=== PATIENT | female | born 1960 | race Caucasian/White ===

== ENCOUNTER 2018-04-08 13:06 | Observation (INO) | payer OTHER ==
[~2018-04-08] VITALS: Ht 167.6 cm; Wt 78.2 kg
[2018-04-08 13:21] LABS: BASOPHIL (%) 0.9 % (0-1); BASOPHIL COUNT 0.1 K/uL (0-0.1); EOSINOPHIL COUNT 0.3 K/uL (0-0.3); HEMATOCRIT 38.7 % (36.0-46.0); HEMOGLOBIN 13.2 G/DL (11.9-15.5); IMMATURE GRANULOCYTE (%) 0.3 % (0.0-0.7); LYMPHOCYTE (%) 48.4 % (15-42); LYMPHOCYTE COUNT 2.8 K/uL (1.0-2.8); MCH 31.4 PG (29.0-34.0); MCHC 34.1 G/DL (30.0-36.0); MCV 92.1 FL (83-99); MONOCYTE (%) 7.9 % (3-12); MONOCYTE COUNT 0.5 K/uL (0-0.8); NEUTROPHIL (%) 37.5 % (45-76); NEUTROPHIL COUNT 2.2 K/uL (1.8-6.4); PLATELET COUNT 218 K/uL (156-360); RBC DIS.WIDTH-CV 12.7 % (11.8-14.6); RBC DIS.WIDTH-SD 42.8 % (39-53); WHITE BLOOD COUNT 5.8 K/uL (4.1-10.2)
[2018-04-08 13:30] LABS: AMYLASE 62 IU/L (1-118); CHLORIDE 107 mEq/L (99-109); INTER. NORMALIZED RATIO 0.9; POTASSIUM 4.3 mEq/L (3.7-5.4); SODIUM 139 mEq/L (136-147)
[2018-04-08 13:32] LABS: GLUCOSE 91 mg/dL (70-99)
[2018-04-08 13:33] LABS: PTT 32.2 SEC (25-37)
[2018-04-08 13:35] LABS: SERUM ETHYL ALCOHOL < 10 mg/dL
[2018-04-08 13:36] LABS: CREATININE 0.8 mg/dL (0.6-1.3)
[2018-04-08 13:37] LABS: GFR ESTIMATE (CALCULATED) > 59 mL/min/; UREA NITROGEN (BUN) 13 mg/dL (9-23)
[2018-04-08 13:39] LABS: LIPASE 33 U/L (1.0-51.0)
[2018-04-08 13:41] LABS: TROP-I INTERPRETATION NEGATIVE; TROPONIN-I < 0.01 ng/mL (0.0-0.30)
[2018-04-08] MEDS ORDERED: EFFEXOR XR75 MG PO (13:44)
[2018-04-08 13:46] LABS: APPEARANCE CLEAR ((CLEAR)); BILIRUBIN NEGATIVE; BLOOD NEGATIVE; COLOR YELLOW ((YELLOW)); GLUCOSE (STRIP) NEGATIVE; KETONES NEGATIVE; LEUKOCYTES NEGATIVE; NITRITE NEGATIVE; PROTEIN (STRIP) NEGATIVE; UCUL ADDED? NO
[2018-04-08] MEDS ORDERED: ELAVIL50 MG PO (13:46)
[2018-04-08] MEDS ORDERED: LYRICA200 MG PO (13:46)
[2018-04-08] MEDS ORDERED: CRESTOR5 MG PO (13:47)
[2018-04-08] MEDS ORDERED: KLONOPIN0.5 M1 PO (13:47)
[2018-04-08] MEDS ORDERED: NAPROSYN500 MG PO (13:47)
[2018-04-08] MEDS ORDERED: RESTASIS MULTI5.5 ML BOTH EYES (13:47)
[2018-04-08] MEDS ORDERED: PROTONIX40 MG PO (13:48)
[2018-04-08] MEDS ORDERED: CIMZIA400 MG/2 M PO (13:53)
[2018-04-08 13:55] LABS: AMPHETAMINE NEGATIVE (500 ng/mL); BARBITURATES NEGATIVE (200 ng/mL); BENZODIAZEPINES NEGATIVE (150 ng/mL); BUPRENORPHINE NEGATIVE (10 ng/mL); COCAINE NEGATIVE (150 ng/mL); METHADONE NEGATIVE (200 ng/mL); METHAMPHETAMINE NEGATIVE (500 ng/mL); OPIATES (MORPHINE) NEGATIVE (100 ng/mL); OXYCODONE NEGATIVE (100 ng/mL); PHENCYCLIDINE PRESUMPTIVE POSITIVE (25 ng/mL); PROPOXYPHENE NEGATIVE (300 ng/mL); THC CANNABINOIDS NEGATIVE (50 ng/mL); TRICYCLIC ANTIDEPRESSANTS PRESUMPTIVE POSITIVE (300 ng/mL)
[2018-04-08 16:35] VITALS: BP 134/79
[2018-04-08 16:37] LABS: HDL CHOLESTEROL 43 MG/DL (Desirable>=50); LDL CHOLESTEROL 90 mg/dL (Desirable<100); NON-HDL CHOLESTEROL 144 mg/dL (Desirable<160); TOTAL CHOLESTEROL 187 mg/dL (Desirable<200); TRIGLYCERIDES 268 MG/DL (Normal: <150)
[2018-04-08 20:00] VITALS: BP 112/68
[2018-04-09] VITALS: BP 101/63
[2018-04-09 04:00] VITALS: BP 88/56
[2018-04-09 08:05] VITALS: BP 101/64
[2018-04-10 09:27] LABS: HEMOGLOBIN A1c (GLYCOHEMOGLOB) 5.4 % (Below 5.7)
== END 2018-04-09 14:20 | disposition home or self-care (01) ==
LOC: EME → EDBD 13:06 → 5SOUTH 15:14 → EDOF 15:14 → 5SOUTH 15:14 → ENRESERV 15:17 → 5SOUTH 16:13
PROVIDERS: Emergency Medicine; Physician Assistant; Student in an Organized Health Care Education/Training Program
DX: R53.1 Weakness (principal); R29.810 Facial weakness; R42 Dizziness and giddiness; H53.8 Other visual disturbances; H53.2 Diplopia; R07.9 Chest pain, unspecified; R09.02 Hypoxemia; R51 Headache; R20.2 Paresthesia of skin; M19.90 Unspecified osteoarthritis, unspecified site; F32.9 Major depressive disorder, single episode, unspecified; G47.33 Obstructive sleep apnea (adult) (pediatric); D68.9 Coagulation defect, unspecified; M79.7 Fibromyalgia; E78.5 Hyperlipidemia, unspecified; Z90.49 Acquired absence of other specified parts of digestive tract; Z90.710 Acquired absence of both cervix and uterus; Z82.49 Family history of ischemic heart disease and other diseases of the circulatory system; Z83.3 Family history of diabetes mellitus; Z88.5 Allergy status to narcotic agent; Z88.6 Allergy status to analgesic agent; Z79.02 Long term (current) use of antithrombotics/antiplatelets
CPT/HCPCS: 70450; 70496; 70498; 70551; 71045; 80047; 80048; 80061; 81003; 82150; 82948; 83036; 83605; 83690; 84484; 84999; 85025; 85610; 85730; 86850; 86900; 86901; 93005; 94660; 99281; 99285; G0378; G0480; J1644; J2060; J2997; J7030